=== PATIENT | female | born 1945 | race Caucasian/White ===

== ENCOUNTER → 2020-09-22 | Outpatient (CLI) | payer MEDICARE ==
--- NOTE | 2020-09-22 08:12 | US ---
EXAMINATION TYPE: US liver DATE OF EXAM: 09/22/2020 COMPARISON: NONE CLINICAL HISTORY: R94.5 ABN LIVER FUNCTION TEST. EXAM MEASUREMENTS: Liver Length: 16.6 cm Gallbladder Wall: Surgically absent CBD: 1.2 cm Right Kidney: 9.4 x 4.6 x 4.5 cm Pancreas: Tail obscured by overlying bowel gas, duct visualized measuring 0.4 cm Liver: Heterogeneous, echogenic echotexture. Gallbladder: Surgically absent Evidence for sonographic Mix's sign: No CBD: Mildly Dilated Right Kidney: No hydronephrosis or masses seen Mild dilated pancreatic duct in the head. Visualized liver is heterogeneously hyperechoic. Evaluation for focal masses suboptimal due to the heterogeneity. No surrounding ascites. Mild extrahepatic bili aneta dilatation without significant intrahepatic biliary dilatation. No hydronephrosis in the right ki dney. Some cortical thinning is present. IMPRESSION: Heterogeneous hyperechoic appearance of liver could be on basis of Diffuse fatty infiltration and/or underlying hepatocellular disease. Mild extra hepatic biliary dilat ation without intrahepatic biliary dilatation. Mild pancreatic head ductal dilatation. Advise follow- up with contrast-enhanced CT to further evaluate and characterize.
== END | disposition home or self-care (01) ==
LOC: RADUSWWP 07:08
PROVIDERS: ATTEND Internal Medicine
DX: K83.8 Other specified diseases of biliary tract (principal); K86.89 Other specified diseases of pancreas; R93.2 Abnormal findings on diagnostic imaging of liver and biliary tract
CPT/HCPCS: 76705

== ENCOUNTER → 2020-12-25 | Outpatient (CLI) | payer MEDICARE ==
--- NOTE | 2021-01-02 10:40 | MM ---
Reason for exam: screening (asymptomatic). Last mammogram was performed 1 year and 10 months ago. History: Patient is postmenopausal. Excisional biopsy of both breasts. Physical Findings: A clinical breast exam by your physician is recommended on an annual basis and results should be correlated with mammographic findings. MG 3D Screening Mammo W/Cad Bilateral CC and MLO view(s) were taken. Prior study comparison: March 10, 2019, mammogram, performed at [place]. September 25, 2017, mammogram, performed at [place]. September 23, 2017, mammogram, performed at [place]. March 15, 2014, mammogram, performed at [place]. March 07, 2014, mammogram, performed at [place]. The breast tissue is heterogeneously dense. This may lower the sensitivity of mammography. There are benign appearing round, linear, vascular calcifications bilaterally. Previous mammotome biopsy in the left breast x 2. There is no discrete abnormality. ASSESSMENT: Benign, BI-RAD 2 RECOMMENDATION: Routine screening mammogram of both breasts in 1 year.
== END | disposition home or self-care (01) ==
LOC: RADMAMWWP 09:43
PROVIDERS: ATTEND Internal Medicine
DX: Z12.31 Encounter for screening mammogram for malignant neoplasm of breast (principal); Z78.0 Asymptomatic menopausal state
CPT/HCPCS: 77063; 77067

== ENCOUNTER → 2023-04-25 | Outpatient (CLI) | payer MEDICARE ==
[2023-04-25 16:25] LABS: INR 0.9 (<1.2); Partial Thromboplastin Time 22.8 sec (22.0-30.0); Prothrombin Time 9.5 sec (9.0-12.0)
[2023-04-25 19:51] LABS: Appearance,Urine Clear (Clear); Bilirubin,Urine Negative (Negative); Blood,Urine Negative (Negative); Color,Urine Yellow (Yellow); Ketones,Urine Trace (Negative); Nitrite,Urine Negative (Negative); PH, Urine 7.5; Specific Gravity,Urine 1.018 (1.001-1.030)
[2023-04-25 19:58] LABS: Bacteria,Urine None Seen (None Seen)
[2023-04-25 19:59] LABS: ALT 24 U/L (8-44); AST 25 U/L (13-35); Albumin 4.6 d/dL (3.8-4.9); Albumin/Globulin Ratio 2.09 Ratio (1.60-3.17); Alkaline Phosphatase 44 U/L (41-126); BUN/Creat Ratio 9.64 Ratio (12.00-20.00); Blood Urea Nitrogen 10.6 mg/dL (9.0-27.0); Calcium 9.9 mg/dL (8.7-10.3); Carbon Dioxide 28.1 mmol/L (21.6-31.8); Chloride 105 mmol/L (96-109); Globulin 2.2 d/dL (1.6-3.3); Glucose 92 mg/dL (70-110); Potassium 4.8 mmol/L (3.5-5.5); Sodium 143 mmol/L (135-145); Total Bilirubin 0.4 mg/dL (0.3-1.2); Total Protein 6.8 d/dL (6.2-8.2)
[2023-04-26 02:02] LABS: HCT 42.8 % (37.2-46.3); HGB 13.4 d/dL (12.0-15.0); MCH 28.8 pg (27.0-32.0); MCHC 31.3 d/dL (32.0-37.0); MCV 91.8 FL (80.0-97.0); Mean Platelet Volume 10.9 FL (9.5-12.2); NRBC Per 100 WBC 0 X 10*3/uL (0.00-0.01); Platelet Count 250 X 10*3/uL (140-440); RBC 4.66 X 10*6/uL (4.10-5.20); RDW 14.4 % (11.5-14.5); WBC 6.09 X 10*3/uL (4.50-10.00)
== END | disposition home or self-care (01) ==
LOC: LABPAT 14:49
PROVIDERS: ATTEND Orthopaedic Surgery Sports Medicine
DX: Z01.812 Encounter for preprocedural laboratory examination (principal); M17.12 Unilateral primary osteoarthritis, left knee; R94.31 Abnormal electrocardiogram [ECG] [EKG]
CPT/HCPCS: 36415; 80053; 81001; 85027; 85610; 85730; 87070; 93005

== ENCOUNTER 2023-05-01 07:39 | Day surgery (SDC) | payer MEDICARE ==
[2023-04-23 09:05] VITALS: BMI 31.8
[~2023-05-01 07:39] MED LIST: ACETAMINOPHEN TAB 500 MG TAB PO PRN; DEXAMETHASONE SOD PHOSPHATE 4 MG/ML 1 ML VIAL IV ONE; GABAPENTIN 300 MG CAP PO PRN; HYDROmorphone 0.5 MG/0.5 ML SYRINGE IVP PRN; LIDOCAINE 1% (10MG/ML) FOR IV START INTRADERMA PRN; MELOXICAM 7.5 MG TAB PO PRN; MIDAZOLAM 2 MG/2 ML VIAL IV PRN; ONDANSETRON 4 MG/2 ML VIAL IVP ONE; ONDANSETRON 4 MG/2 ML VIAL IVP PRN; TRANEXAMIC 1,000 MG/100ML-NACL 1,000 MG in SALINE 1 100ML.BAG IVPB PRN
[2023-05-01] MEDS ORDERED: LACTATED RINGERS 1,000 ML IV ONE (08:10)
[2023-05-01 08:42] LABS: Glucose,Whole Blood 140 mg/dL (70-110)
[2023-05-01] MEDS ORDERED: MIDAZOLAM 2 MG/2 ML VIAL IVP ONE (08:45)
[2023-05-01] MEDS ORDERED: traMADol 50 MG TAB PO PRN (09:09)
[2023-05-01] MEDS ORDERED: ACETAMINOPHEN TAB 325 MG TAB PO PRN (09:09)
[2023-05-01] MEDS ORDERED: MAGNESIUM HYDROXIDE 2,400 MG/30 ML CUP PO PRN (09:09)
[2023-05-01] MEDS ORDERED: NA PHOS,M-B/NA PHOS,DI-BA 133 ML ENEMA RECTAL PRN (09:09)
[2023-05-01] MEDS ORDERED: NALOXONE 0.4 MG/ML 1 ML VIAL IV PRN (09:09)
[2023-05-01] MEDS ORDERED: ONDANSETRON 4 MG/2 ML VIAL IVP PRN (09:09)
[2023-05-01] MEDS ORDERED: bisacodyL 10 MG SUPP RECTAL PRN (09:09)
[2023-05-01] MEDS ORDERED: HYDROmorphone 0.5 MG/0.5 ML SYRINGE IVP PRN ×3 (09:09)
[2023-05-01] MEDS ORDERED: PROPOFOL 10 MG/ML 20 ML VIAL IV ONE (09:37)
[2023-05-01] MEDS ORDERED: PHENYLEPHRINE-0.9% NACL SYG 1,000 MCG/10 ML SYRINGE ONE (09:37)
[2023-05-01] MEDS ORDERED: fentaNYL (PF) 50 MCG/ML 2 ML AMP ONE (09:37)
[2023-05-01] MEDS ORDERED: TRANEXAMIC 1,000 MG/100ML-NACL PREMIX BAG ONE (09:37)
[2023-05-01] MEDS ORDERED: ROPIVACAINE 5 MG/ML 30 ML VIAL ONE (09:37)
[2023-05-01] MEDS ORDERED: DEXAMETHASONE SOD PHOSPHATE 4 MG/ML 1 ML VIAL ONE (09:37)
[2023-05-01] MEDS ORDERED: ePHEDrine 50 MG/ML 1 ML VIAL ONE (09:37)
[2023-05-01] MEDS ORDERED: MIDAZOLAM 2 MG/2 ML VIAL ONE (09:37)
[2023-05-01] MEDS ORDERED: ceFAZolin 3,000 MG in SODIUM CHLORIDE 0.9% IRRIGATIO 3,000 ML IRRIGATION ONE (10:11)
[2023-05-01] MEDS ORDERED: ROPIVACAINE 1,100 MG, SODIUM CHLORIDE 0.9% 500 ML 330 ML, EMPTY PAIN BALL 1 EACH MISCELLANE PRN ×2 (11:47)
--- NOTE | 2023-05-01 12:44 | XR ---
EXAMINATION TYPE: XR knee limited RT DATE OF EXAM: 05/01/2023 CLINICAL HISTORY: Postoperative evaluation Two views of the right knee are submitted. Identified are changes of total knee arthroplasty with femoral and tibial components appearing well seated. Postsurgical soft tissue changes are noted. Alignment is anatomic.
--- NOTE | 2023-05-01 13:02 | OP ---
OPERATIVE REPORT DATE OF SERVICE : 05/01/2023 MAT ROLLER: Adair Millard PA-C. PREOPERATIVE DIAGNOSIS: Right knee osteoarthrosis. POSTOPERATIVE DIAGNOSIS: Right knee osteoarthrosis. PROCEDURE PERFORMED: Right total knee arthroplasty. ANESTHESIA: Spinal with sedation. ESTIMATED BLOOD LOSS: 100 mL. TOURNIQUET TIME: 49 minutes at 250 mmHg. COMPLICATIONS: None apparent. DRAINS: None. DISPOSITION: Postanesthesia care unit. INDICATIONS: Blanca is a very pleasant 78-year-old female with longstanding history of right knee pain. History and physical examination are consistent with advanced right knee osteoarthrosis. She has been through significant nonoperative management up to this point. Further treatment options were discussed, and she decided to go forward with right total knee arthroplasty. The risks of procedure were discussed in detail. These risks included, but were not limited to, risk of infection, nerve damage, bleeding, pain, and a small risk of deep vein thrombosis which could lead to fatal pulmonary embolism. There is also risk of loosening of the implant which could require revision operation. The patient understands these risks. All of her questions were answered to her satisfaction. Appropriate informed consent was obtained. DESCRIPTION OF PROCEDURE: The patient was identified in the preoperative holding area. The surgical site was marked by both the patient and myself. She was given 2 g of Ancef IV prophylactic purposes. She was then transported to the operative suite. She was placed supine on the operating room table. Spinal anesthetic was then administered and dosed per the Anesthesia Department without apparent complication. Examination under anesthesia was then performed. The patient was 2 to 3 degrees shy of full extension. She had 100 degrees of flexion of the medial collateral ligament, lateral collateral ligament, posterior cruciate ligaments were stable. Tourniquet was then placed high on the right upper thigh, well-padded in preparation for surgery. The patient's right lower extremity was then prepped and draped in usual sterile fashion. Standard surgical pause was then undertaken to ensure that we were operating the correct site and that appropriate preoperative antibiotics had been given. All staff in the room were in agreement and we proceeded. The outlines of the patella were marked with a surgical pen. A planned 12 cm vertical incision centered over the patella was marked with a surgical pen. The leg was then exsanguinated with an Esmarch dressing. The knee was then flexed, and the tourniquet was inflated to 250 mmHg. The total tourniquet time for the procedure was 49 minutes. Incision was then made with a 10-blade scalpel. Dissection was carried down sharply to overlying fascia. Great care was taken to minimize the skin flaps. The knee was then exposed using a standard medial parapatellar approach. A small cuff of quadriceps tendon was then left for suturing. She was in a bit of varus preoperatively. A standard medial release was then made. Superficial medial collateral ligament dissected off the bone around to the posterior aspect of the proximal tibia. Medial meniscus was then excised as well. The lateral meniscus was also released anteriorly. The leg was then externally rotated. The patella was everted. The knee was flexed. The retractors were then placed to protect the collateral ligaments. I then proceeded to remove the infrapatellar fat pad. This excised sharply tangentially with fibers of the patellar tendon. I then proceeded to remove the peripheral osteophytes. This was done with a rongeur. I then proceeded with the distal femoral resection. She did have near full extension. A planned 9-mm resection was then done. The femoral canal was in the midline of the femur, approximately 10 mm anterior to the origin of the posterior cruciate ligament. The portillo was then advanced down the center of the femur and placed intramedullary. Based on the preoperative radiographs, the angle between the anatomic and mechanical axis of the femur was approximately 4 to 5 degrees. The valgus angle of the distal femoral cutting guide was then set at 4 degrees for the right knee. The distal cutting guide was then advanced over the intramedullary portillo. This was seated firmly against the femur. Then, as mentioned, planned to take 9 mm off the distal femur. The cutting block was then secured onto the femur with pins. Jig was then removed. Distal femoral cut was made through the slot of the block. The pins were then removed, the distal femoral cutting block was removed. The accuracy of the distal cuts was checked with 2 flat bars. I then proceeded with femoral sizing. Posterior referencing sizing guide was held firmly against the resected distal surface of the femur. The posterior condyles were resting on the posterior plane of the guide. The sizing guide was then placed on the anterior femur. The size was measured as a size 7. I then assessed for femoral rotation. Plan was for 3 degrees external rotation. Three degrees of external rotation was placed onto the jig. These holes were then marked and then confirmed the rotation by 3 separate methods. This was done using epicondylar axis as well as Whitesides line and posterior referencing. It was deemed that the external rotation was proper. I then went forward and placed the femoral cutting block. This was placed over the previously placed pin holes. The Julián wing was then placed on the anterior slots to ensure that we would not notch the anterior femur with the anterior femoral cut. I then proceeded with the anterior femoral cut. This was flushed with the anterior cortex of the femur. The posterior cuts were then made followed by the anterior chamfer cut and the posterior chamfer cut. The cutting block was then removed. Throughout the resection, the collateral ligaments were protected with retractors. I then placed a trial size 7 femur. It was slightly wide but the narrow fit very nicely, and it fit flush with the distal end of the femur. The drill holes were then made. I then proceeded with the tibial cut. I planned for cruciate-retaining knee. The guide was placed and set for varus valgus and for slope. Height set for approximately 2 mm resection from the medial tibial plateau which was the lower side. I was happy with the alignment and the amount of resection. The cutting block was then pinned to the proximal tibia. The alignment portillo was removed and the proximal tibia was resected with a reciprocating saw. Again, this was done with retractors protecting the collateral ligaments as well as the posterior cruciate ligament. I then proceeded to evaluate the flexion extension gaps. A 10 mm block was then placed. The flexion extension gaps were equal. I then proceeded with resection of the posterior osteophytes. She had fairly minimal posterior osteophytes. This was done using curved osteotome. This resected the posterior osteophytes, and posterior capsular stripping was done off the posterior aspect of the femur at this time. The osteophytes were then removed. I then proceeded with resection of the patella. The thickness of patella was measured using the caliper. The thickness was 24 mm. Thickness of the anticipated patellar dome was taken into account. Resection was then performed and confirmed to be equal in 4 quadrants using a caliper. Approximately 14 mm of bone remained after resection. A 29 x 8 mm standard patellar trial was then placed. The holes were drilled and the trial was then placed. I then proceeded with sizing tibial plate. A size C tibial plate fit very nicely. I then placed a trial femur, tibial tray, and patellar button. A 10 mm trial tibial insert was also placed. The components fit very nicely. She had full extension and flexion. The extension and flexion gaps were equal and stable to both varus and valgus stress. The patella tracked appropriately. The tibial tray rotation was then marked with a Bovie. This was externally rotated properly. I then proceeded with tibial preparation. I first drilled the femoral holes and removed the femoral component. Tibial tray was then set for proper external rotation as well as medial lateral placement on the tibia. It was then pinned in place. I then proceeded with punching the keel. I then decided to proceed with cementing of all our components. The knee was thoroughly irrigated with sterile saline solution via pulse lavage. The lateral geniculate artery was identified and cauterized. All blood was removed from the bone of the tibia, femur and patella pulsed lavage. I then proceeded with cementing. Two packs of antibiotic bone cement prepared on the back table by surgical orderly. I then proceeded with cementing the tibia first. Cement was impacted in the keel as well as deeply seated into the bone. A second coat of cement was then placed. The tibia was then impacted into place. Excess cement was removed with German's and Joker's. I then proceeded with cementing of the femoral component. The femoral component was also cemented using standard technique. Excess cement was removed. A 10-mm trial insert was then placed in the knee. It was brought into full extension with a constant axial load placed until the cement had hardened. The patellar component was then cemented. This held firmly compressive device until the cement had dried. When the cement dried, the knee was taken out of extension. All excess cement was removed from around the prosthesis. I then trialed the knee with a 10 mm insert. Flexion extension gaps were appropriate. The knee was stable. It came into full extension. I decided to go forward with 10 mm medial congruent cross-linked cruciate- retaining tibial insert. Polyethylene was then placed on the tibial tray and locked in place. The knee was then reduced. The knee was again further irrigated with sterile saline solution with antibiotic added. The tourniquet was then deflated. Total tourniquet time for the procedure was 49 minutes at 250 mmHg. Final components were Mayco Persona size 7 narrow cruciate-retaining femoral component, size C tibial tray, a 10 mm medial congruent cruciate-retaining polyethylene insert, a 29 x 8 mm patella. I then proceeded with closure. Again, the knee was thoroughly irrigated. The quadriceps tendon and the medial retinaculum were reapproximated with #2 Ethibond suture. The extensor mechanism was then closed with a running #2 Quill suture. Subcutaneous tissues were closed with 2-0 Vicryl interrupted suture. The skin was closed with a running 3-0 Quill suture. Dermabond was applied to the incision. Sterile compressive dressing was then applied. All sponge and needle counts were deemed correct prior to closure. The patient tolerated the procedure without apparent complication. She was transferred to recovery room in stable condition. MMODL / IJN: [id number] /
[2023-05-01] MEDS: LACTATED RINGERS 1,000 ML IV SCH ×3 (13:44→22:10)
[2023-05-01] MEDS: HYDROcodone/APAP 7.5-325MG 1 EACH TAB PO PRN ×2 (16:37→20:05)
[2023-05-01] MEDS ORDERED: ALBUTEROL NEBULIZED 2.5 MG/3 ML INHALATION PRN (17:24)
[2023-05-01] MEDS ORDERED: SYMBICORT 80-4.5 MCG INHALER INHALATION PRN (17:24)
[2023-05-01] MEDS: PANTOPRAZOLE 40 MG TABLET PO SCH (18:23)
--- NOTE | 2023-05-01 19:48 | P.ANPRN ---
Procedure Note - Anesthesia - Nerve Block Performed Right Adductor Canal Infusion Time Out Performed: Yes Date of Procedure: 05/01/23 Procedure Start Time: :44 Procedure Stop Time: :52 Location of Patient: PreOp Indication: Acute Post-Operative Pain, Requested by Surgeon Sedation Type: Sedate with meaningful contact maintained Preparation: Sterile Prep, Sterile Dressing Position: Supine Catheter: Indwelling Needle Types: Pajunk Needle Gauge: 21 Ultrasound used to visualize needle placement: Yes Ultrasound used to observe medication spread: Yes Blood Aspirated: No Pain Paresthesia on Injection Noted: No Resistance on Injection: Normal Image Stored and Saved: Yes Events: Uneventful and Well Tolerated (Ropivacaine 0.5% 20 mL plus dexamethasone 4 mg)
--- NOTE | 2023-05-01 19:49 | P.ANPRN ---
Procedure Note - Anesthesia - Nerve Block Performed Right Radhack Single Time Out Performed: Yes Date of Procedure: 05/01/23 Procedure Start Time: 08:53 Procedure Stop Time: 08:56 Location of Patient: PreOp Indication: Acute Post-Operative Pain, Requested by Surgeon Sedation Type: Sedate with meaningful contact maintained Preparation: Sterile Prep Position: Supine Needle Types: Pajunk Needle Gauge: 21 Ultrasound used to visualize needle placement: Yes Ultrasound used to observe medication spread: Yes Blood Aspirated: No Pain Paresthesia on Injection Noted: No Resistance on Injection: Normal Image Stored and Saved: Yes Events: Uneventful and Well Tolerated (Ropivacaine 0.5% 20 mL plus dexamethasone 4 mg)
[2023-05-01] MEDS: ASPIRIN 81 MG PO SCH (20:05)
[2023-05-01] MEDS ORDERED: DULoxetine HCL 60 MG CAPSULE.DR PO SCH (21:00)
[2023-05-01] MEDS ORDERED: MAGNESIUM OXIDE 400 MG TAB PO SCH (21:00)
[2023-05-01] MEDS ORDERED: SENNOSIDES-DOCUSATE SODIUM 1 EACH TAB PO SCH (21:00)
[2023-05-01] MEDS ORDERED: ALPRAZolam 0.5 MG TAB PO SCH (21:00)
[2023-05-02] MEDS: HYDROcodone/APAP 7.5-325MG 1 EACH TAB PO PRN ×2 (01:05→10:44)
[2023-05-02] MEDS: PANTOPRAZOLE 40 MG TABLET PO SCH (06:27)
[2023-05-02] MEDS: LACTATED RINGERS 1,000 ML IV SCH ×3 (06:27→11:15)
[2023-05-02] MEDS: ASPIRIN 81 MG PO SCH (08:48)
[2023-05-02] MEDS ORDERED: LORATADINE 10 MG TAB PO SCH (09:00)
[2023-05-02 11:07] LABS: Basophils # (A) 0.01 X 10*3/uL (0.00-0.10); Basophils % (A) 0.1 %; Eosinophils # (A) 0.01 X 10*3/uL (0.04-0.35); Eosinophils % (A) 0.1 %; HCT 36.4 % (37.2-46.3); HGB 11.5 d/dL (12.0-15.0); Lymphocytes # (A) 1.04 X 10*3/uL (0.90-5.00); Lymphocytes % (A) 9.7 %; MCH 29.1 pg (27.0-32.0); MCHC 31.6 d/dL (32.0-37.0); MCV 92.2 FL (80.0-97.0); Mean Platelet Volume 10.3 FL (9.5-12.2); Monocytes # (A) 1.02 X 10*3/uL (0.20-1.00); Monocytes % (A) 9.5 %; NRBC Per 100 WBC 0 X 10*3/uL (0.00-0.01); Neutrophils # (A) 8.65 X 10*3/uL (1.80-7.70); Neutrophils % (A) 80.3 %; Platelet Count 247 X 10*3/uL (140-440); RBC 3.95 X 10*6/uL (4.10-5.20); RDW 14.7 % (11.5-14.5); WBC 10.76 X 10*3/uL (4.50-10.00)
[2023-05-02] MEDS ORDERED: MULTIVITAMINS, THERA 1 EACH TAB PO SCH (12:00)
[2023-05-02 12:23] LABS: Appearance,Urine Clear (Clear); Bilirubin,Urine Negative (Negative); Blood,Urine Negative (Negative); Color,Urine Yellow; Glucose,Urine (UA) Negative (Negative); Ketones,Urine Negative (Negative); Leukocyte Esterase,Urine Negative (Negative); Nitrite,Urine Negative (Negative); PH, Urine 5.5 (5.0-8.0); Protein,Urine Negative (Negative); Specific Gravity,Urine 1.024 (1.001-1.035); Urobilinogen,Urine <2.0 mg/dL (<2.0)
--- NOTE | 2023-05-02 12:53 | P.CONS ---
History of Present Illness - Reason for Consult Consult date: 05/02/23 - History of Present Illness This is a 78 year old female with medical history of asthma, GERD/Reflux, hypertension, sleep apnea, neuropathy. Patient is admitted for elective right total knee arthroplasty for osteoarthritis. Patient is evaluated today on the medical floor. Blood pressure is low 100s to 90s systolic and will recommend to hold losartan patients home medication. Otherwise postoperatively patient is doing well. No chest pain, no shortness of breath. Patient reports pain about 4 out of 10 and she states pain is controlled with current regimen. Patient was on bactrim outpatient perioperatively reports had an abnormal urine has no dysuria urgency or frequency, urinalysis will be repeated prior to discharge. Patient on medical floor and has been evaluated by PT can DC home with homecare and medically patient is stable for DC home. REVIEW OF SYSTEMS: CONSTITUTIONAL: No fever, no malaise, no fatigue. HEENT: No recent visual problems or hearing problems. Denied any sore throat. CARDIOVASCULAR: No chest pain, orthopnea, PND, no palpitations, no syncope. PULMONARY: No shortness of breath, no cough, no hemoptysis. GASTROINTESTINAL: No diarrhea, no nausea, no vomiting, no abdominal pain. NEUROLOGICAL: No headaches, no weakness, no numbness. HEMATOLOGICAL: Denies any bleeding or petechiae. GENITOURINARY: Denies any burning micturition, frequency, or urgency. MUSCULOSKELETAL/RHEUMATOLOGICAL: Denies any joint pain, swelling, or any muscle pain. ENDOCRINE: Denies any polyuria or polydipsia. The rest of the 14-point review of systems is negative. PHYSICAL EXAMINATION: GENERAL: The patient is alert and oriented x3, not in any acute distress. Well developed, well nourished. HEENT: Pupils are round and equally reacting to light. EOMI. No scleral icterus. No conjunctival pallor. Normocephalic, atraumatic. No pharyngeal erythema. No thyromegaly. CARDIOVASCULAR: S1 and S2 present. No murmurs, rubs, or gallops. PULMONARY: Chest is clear to auscultation, no wheezing or crackles. ABDOMEN: Soft, nontender, nondistended, normoactive bowel sounds. No palpable organomegaly. MUSCULOSKELETAL: No joint swelling or deformity. Post surgical right knee no swelling. Has dressing inplace. EXTREMITIES: No cyanosis, clubbing, or pedal edema. NEUROLOGICAL: Gross neurological examination did not reveal any focal deficits. SKIN: No rashes. Assessment Right knee total arthroplasty due to severe osteoarthritis Hx hypertension low/normal postoperative and recommend to hold losartan on discharge and monitor BP outpatient can resume when BP is above 130s systolic. Abnormal urinalysis outpatient will repeat prior to discharge Hx asthma with no acute exacerbation patient is on room and needs encouragement to use the IS 10 x an hr while awake Hx of sleep apnea Hx GERD Obesity GI prophylaxis DVT prophylaxis as per primary Full Code Plan Patient to continue same home medications with the exception of losartan recommending to hold and f/u BP outpatient can resume if BP above 130s systolic Continue with incentive spirometer 10 x an hour while awake Home with homecare on discharge as recommended by PT. Repeat urinalysis prior to DC patient may not require further antibiotics. Medically patient can dc home if cleared by primary service with mentioned recommendations. Thank you kindly for this consultation. The impression and plan of care has been dictated by Lavonne López, Nurse Practitioner as directed. Dr. Becky MD I have performed a history and physical examination and medical decision making of this patient, discussed the same with the dictator, and agree with the dictators assessment and plan as written, documented as a scribe. Based on total visit time, I have performed more than 50% of this visit. Past Medical History Past Medical History: Asthma, GERD/Reflux, Hypertension, Sleep Apnea/CPAP/BIPAP Additional Past Medical History / Comment(s): Neuropathy, Borderline Diabetes, seasonal allergies. Hx. of acute thyroiditis- 15 years ago. History of Any Multi-Drug Resistant Organisms: None Reported Past Surgical History: Cholecystectomy, Orthopedic Surgery Additional Past Surgical History / Comment(s): Colonoscopy, R foot surgery in November of 2022 for a bone spur, right knee replacement 05/01/23 Past Anesthesia/Blood Transfusion Reactions: No Reported Reaction Past Psychological History: No Psychological Hx Reported Smoking Status: Never smoker Past Alcohol Use History: Rare Past Drug Use History: None Reported - Past Family History Mother Family Medical History: CVA/TIA Medications and Allergies Home Medications Medication Instructions Recorded Confirmed Type Albuterol Inhaler [Ventolin Hfa 1 puff INHALATION TID PRN 04/23/23 05/01/23 History Inhaler] Budesonide/Formoterol Fumarate 1 puff INHALATION DAILY PRN 04/23/23 05/01/23 History [Symbicort 80-4.5 Mcg Inhaler] Loratadine [Claritin] 10 mg PO DAILY 04/23/23 05/01/23 History Magnesium 200 mg PO HS 04/23/23 05/01/23 History Omeprazole [PriLOSEC] 20 mg PO HS 04/23/23 05/01/23 History ALPRAZolam [Xanax] 0.5 mg PO HS 04/28/23 05/01/23 History DULoxetine HCL [Cymbalta] 60 mg PO HS 04/28/23 05/01/23 History Losartan [Cozaar] 25 mg PO HS 04/28/23 05/01/23 History Sulfamethoxazole/Trimethoprim See Rx Instructions .ROUTE .COMPLEX 05/01/23 05/01/23 History [Sulfamethoxazole-Tmp Ds Tablet] Allergies Allergy/AdvReac Type Severity Reaction Status Date / Time meperidine [From Demerol] Allergy Anaphylaxis Verified 05/01/23 08:11 Physical Exam Vitals: Vital Signs Temp Pulse Pulse Resp BP Pulse Ox FiO2 05/02/23 07:00 97.9 F 80 18 97/62 92 L 05/02/23 01:17 98.1 F 92 18 113/69 90 L 05/01/23 20:02 98.2 F 87 18 124/72 90 L 05/01/23 14:16 97.6 F 84 18 137/78 96 05/01/23 13:30 77 17 149/74 65 L 05/01/23 13:15 78 15 98 05/01/23 13:00 79 05/01/23 12:45 81 16 138/69 100 05/01/23 12:34 72 19 126/67 99 05/01/23 12:15 80 16 100 05/01/23 12:00 77 15 140/62 100 3 05/01/23 11:45 78 17 140/62 97 05/01/23 11:37 98.0 F 15 108/60 100 Intake and Output 05/01/23 05/02/23 05/02/23 22:59 06:59 14:59 Intake Total 450 1490 Balance 450 1490 Intake: Intake, IV Titration 450 1250 Amount Lactated Ringers 1,000 ml 400 1200 @ 100 mls/hr IV .Q10H [facility] Rx#:[id number] ceFAZolin 2 gm In Sodium 50 50 Chloride 0.9% 50 ml @ 100 mls/hr IVPB Q8H [facility] Rx#: [id number] Oral 240 Other: # Voids 1 2 Results CBC & Chem 7: 05/02/23 08:11 Assessment and Plan Time with Patient: Less than 30
[2023-05-02 13:28] VITALS: BP 136/62; PULSE 75; RESP 16; TEMP 98.5
--- NOTE | 2023-05-02 13:42 | P.DS ---
Providers Expected date of discharge: 05/02/23 Attending physician: Den Mix Consults: 05/01/23 14:04 Consult Physician Routine Consulting Provider: Ceasar Bobo Consult Reason/Comments: medical Do you want consulting provider notified?: Yes Primary care physician: Eliseo Moore - Discharge Diagnosis(es) (1) Osteoarthritis of right knee Patient was admitted to the OR on 05/01/23 to undergo a right total knee arthroplasty. She had failed conservative measures as an outpatient and desired to proceed with elective surgery after given informed consent. SHe underwent the above procedure which he tolerated well without complication. Postoperative hospital course has remained without complication. On day of discharge she is afebrile, vital signs stable, labs within acceptable ranges, tolerating by mouth meds and diet, voiding without difficulty, positive flatus, denies abdominal pain or calf pain, pain is controlled on oral pain medication and has no new complaints. Wound is benign, neurovascular status is intact, calf is soft and nontender, abdomen soft and nontender. Review of systems is negative for numbness, tingling, fever, chills, chest pain, shortness of breath, nausea, vom iting, dizziness, headaches, slurred speech or other. Current Visit: Yes Status: Acute Priority: Medium Procedures: Right TKA Patient Condition at Discharge: Good Plan - Discharge Summary Discharge Rx Participant: Yes New Discharge Prescriptions: New Aspirin [Adult Low Dose Aspirin EC] 81 mg PO BID #60 tab Docusate [Colace] 100 mg PO BID #60 capsule HYDROcodone/APAP 7.5-325MG [[place] 7.5-325] 1 - 2 each PO Q6HR PRN #42 tab PRN Reason: Pain Multivitamins, Thera [Multivitamin (formulary)] 1 each PO DAILY@1200 #30 tab Continue Albuterol Inhaler [Ventolin Hfa Inhaler] 1 puff INHALATION TID PRN PRN Reason: Wheezing Magnesium 200 mg PO HS ALPRAZolam [Xanax] 0.5 mg PO HS Loratadine [Claritin] 10 mg PO DAILY Omeprazole [PriLOSEC] 20 mg PO HS Budesonide/Formoterol Fumarate [Symbicort 80-4.5 Mcg Inhaler] 1 puff INHALATION DAILY PRN PRN Reason: Wheezing DULoxetine HCL [Cymbalta] 60 mg PO HS Discontinued Losartan [Cozaar] 25 mg PO HS No Action Sulfamethoxazole/Trimethoprim [Sulfamethoxazole-Tmp Ds Tablet] See Rx Instructions .ROUTE .COMPLEX Discharge Medication List Albuterol Inhaler [Ventolin Hfa Inhaler] 1 puff INHALATION TID PRN 04/23/23 [History] Budesonide/Formoterol Fumarate [Symbicort 80-4.5 Mcg Inhaler] 1 puff INHALATION DAILY PRN 04/23/23 [History] Loratadine [Claritin] 10 mg PO DAILY 04/23/23 [History] Magnesium 200 mg PO HS 04/23/23 [History] Omeprazole [PriLOSEC] 20 mg PO HS 04/23/23 [History] ALPRAZolam [Xanax] 0.5 mg PO HS 04/28/23 [History] DULoxetine HCL [Cymbalta] 60 mg PO HS 04/28/23 [History] Sulfamethoxazole/Trimethoprim [Sulfamethoxazole-Tmp Ds Tablet] See Rx Instructions .ROUTE .COMPLEX 05/01/23 [History] Aspirin [Adult Low Dose Aspirin EC] 81 mg PO BID #60 tab 05/02/23 [Rx] Docusate [Colace] 100 mg PO BID #60 capsule 05/02/23 [Rx] HYDROcodone/APAP 7.5-325MG [[place] 7.5-325] 1 - 2 each PO Q6HR PRN #42 tab 05/02/23 [Rx] Multivitamins, Thera [Multivitamin (formulary)] 1 each PO DAILY@1200 #30 tab 05/02/23 [Rx] Follow up Appointment(s)/Referral(s): Eliseo Moore MD [Primary Care Provider] - 1 Week [facility] [NON-STAFF] - 1-2 Days Den Mix MD [STAFF PHYSICIAN] - 10 Days Activity/Diet/Wound Care/Special Instructions: Hold losartan on discharge and monitor BP can resume when blood pressure above 130s systolic WBAT may shower in 3 days if no bleeding take meds as directed F/U in office Discharge Disposition: HOME WITH HOME HEALTH SERVICES
--- NOTE | 2023-05-02 15:01 | P.PN ---
Progress Note - Text The patient is status post right adductor canal catheter placement. The catheter was placed for postoperative pain control, status post total right knee arthroplasty. Ropivacaine 0.2% is infusing at 8 mLs per hour. The patient has no complaints of right lower extremity numbness or weakness. Patient's VAS score is 0 -10. Assessment: Patient's adductor canal catheter is in place and working appropriately. Plan: continue infusion and adjust it as needed.
[2023-05-02] MEDS ORDERED: LOSARTAN 25 MG TAB PO SCH (21:00)
== END 2023-05-02 15:09 | disposition home health service (06) ==
LOC: OR 07:39 → 4SSUR 11:37 → OR 05-02 15:09
PROVIDERS: ATTEND Orthopaedic Surgery Sports Medicine
DX: M17.11 Unilateral primary osteoarthritis, right knee (principal); J45.909 Unspecified asthma, uncomplicated; K21.9 Gastro-esophageal reflux disease without esophagitis; I10 Essential (primary) hypertension; G47.33 Obstructive sleep apnea (adult) (pediatric); N28.9 Disorder of kidney and ureter, unspecified; G62.9 Polyneuropathy, unspecified; E66.9 Obesity, unspecified; Z68.32 Body mass index [BMI] 32.0-32.9, adult; Z86.39 Personal history of other endocrine, nutritional and metabolic disease; Z90.49 Acquired absence of other specified parts of digestive tract; Z98.890 Other specified postprocedural states; Z82.3 Family history of stroke; Z79.51 Long term (current) use of inhaled steroids; Z79.1 Long term (current) use of non-steroidal anti-inflammatories (NSAID); Z79.899 Other long term (current) drug therapy; Z88.5 Allergy status to narcotic agent; Z79.82 Long term (current) use of aspirin
CPT/HCPCS: 97161; 85025; 81003; 73560; 27447; J2250; J1100; J0690 ×3; J2405; J3010; J2795; J2704; J1170; J2371; 64448; 64999

== ENCOUNTER → 2025-01-06 | Outpatient (CLI) | payer MEDICARE ==
[2025-01-06 20:00] LABS: Carbon Dioxide 25.9 mmol/L (21.6-31.8); Chloride 102 mmol/L (96-109); Potassium 4.6 mmol/L (3.5-5.5); Sodium 142 mmol/L (135-145)
[2025-01-06 20:32] LABS: HCT 45.3 % (37.2-46.3); HGB 13.9 g/dL (12.0-15.0); MCH 28.3 pg (27.0-32.0); MCHC 30.7 g/dL (32.0-37.0); MCV 92.1 FL (80.0-97.0); Mean Platelet Volume 10.6 FL (9.5-12.2); NRBC Per 100 WBC 0 X 10*3/uL (0.00-0.01); Platelet Count 281 X 10*3/uL (140-440); RBC 4.92 X 10*6/uL (4.10-5.20); RDW 14.2 % (11.5-14.5); WBC 6.11 X 10*3/uL (4.50-10.00)
== END | disposition home or self-care (01) ==
LOC: LABPAT 13:50
PROVIDERS: ATTEND Internal Medicine Interventional Cardiology
DX: Z01.812 Encounter for preprocedural laboratory examination (principal); R07.9 Chest pain, unspecified; R06.02 Shortness of breath
CPT/HCPCS: 80051; 82565; 84520; 85027

== ENCOUNTER 2025-01-11 09:26 | Day surgery (SDC) | payer MEDICARE ==
[2025-01-07 16:10] VITALS: BMI 32.9
[~2025-01-11 09:26] MED LIST changes: -ACETAMINOPHEN TAB 500 MG TAB PO PRN; +ALPRAZolam 0.25 MG TAB PO PRN; -DEXAMETHASONE SOD PHOSPHATE 4 MG/ML 1 ML VIAL IV ONE; -GABAPENTIN 300 MG CAP PO PRN; +HEPARIN SODIUM,PORCINE (1 ML) 2,500 UNIT in SODIUM CHLORIDE 0.9% 250 ML IRRIGATION PRN; +HEPARIN SODIUM,PORCINE 10,000 UNIT in SODIUM CHLORIDE 0.9% 1,000 ML IRRIGATION PRN; -HYDROmorphone 0.5 MG/0.5 ML SYRINGE IVP PRN; -LIDOCAINE 1% (10MG/ML) FOR IV START INTRADERMA PRN; -MELOXICAM 7.5 MG TAB PO PRN; -MIDAZOLAM 2 MG/2 ML VIAL IV PRN; +NITROGLYCERIN SL TABS 0.4 MG TAB SUBLINGUAL PRN; -ONDANSETRON 4 MG/2 ML VIAL IVP ONE; -ONDANSETRON 4 MG/2 ML VIAL IVP PRN; -TRANEXAMIC 1,000 MG/100ML-NACL 1,000 MG in SALINE 1 100ML.BAG IVPB PRN
[2025-01-11] MEDS: IV FLUID CONTINUATION 1,000 ML IV ONE (09:35)
[2025-01-11 10:00] LABS: Glucose,Whole Blood 103 mg/dL (70-110)
[2025-01-11] MEDS: SODIUM CHLORIDE 0.9% 1,000 ML in EMPTY BAG 1 BAG IV SCH (10:07)
[2025-01-11] MEDS: ALPRAZolam 0.5 MG TAB PO PRN (10:07)
[2025-01-11] MEDS: ASPIRIN 325 MG TAB PO ONE (10:08)
[2025-01-11 10:15] VITALS: RESP 16; TEMP 97.9
[2025-01-11] MEDS: HEPARIN SODIUM (1,000 UNIT/ML) 1,000 UNIT in SODIUM CHLORIDE 0.9% 1,000 ML IRRIGATION ONE (12:02)
[2025-01-11] MEDS: HEPARIN SODIUM,PORCINE (1 ML) 2,500 UNIT in SODIUM CHLORIDE 0.9% 250 ML IRRIGATION ONE (12:02)
[2025-01-11] MEDS: fentaNYL (PF) 50 MCG/ML 2 ML AMP IVP ONE (12:02)
[2025-01-11] MEDS: LIDOCAINE 1% INJ 10MG/ML (20 ML MDV) SQ ONE (12:04)
[2025-01-11] MEDS: VERAPAMIL SYRINGE (5 MG/10 ML) INTRAARTER ONE (12:05)
[2025-01-11] MEDS: HEPARIN SODIUM 1,000 UN/ML (10ML VL) IVP ONE (12:11)
[2025-01-11] MEDS: IOPAMIDOL-370 100ML BTL INJ ONE (12:20)
[2025-01-11] MEDS ORDERED: RX INFO: IV CONTRAST WAS GIVEN 1 EACH MISC MISCELLANE PRN (12:33)
[2025-01-11] MEDS: SODIUM CHLORIDE 0.9% 1,000 ML IV SCH (12:39)
--- NOTE | 2025-01-11 12:39 | P.CARDCATH ---
Date of Procedure: 01/11/25 Description of Procedure: Cardiac Catheterization: The patient is a 79-year-old female with known history of hypertension and diabetes who has been complaining of progressive dyspnea on exertion and fatigue and episodes of chest discomfort. She had an MPI that showed evidence of cardiomyopathy but no inducible ischemia. Recommendations were made regarding cardiac catheterization, the risks and the complications were discussed with the patient who is in full understanding and agreement. Procedure Description: Patient was brought to microbiology lab assistant in fasting semi-sedated state after receiving Fentanyl and Benadryl achieiving moderate conscious sedated state. Using Xylocaine Anesthesia and modified Seldinger technique, a 6-Mongolian sheath was introduced in the right ulnar artery . Subsequently, selective coronary angiography was performed using a 5-Mongolian 3.5 bend Kaz catheter. Multiple views of the coronary artery including hemiaxial views were obtained. The 5 Mongolian pigtail catheter was used to cross the aortic valve and LVEDP was calculated. A 30 degree TAYLOR view of the left ventricle was obtained. Following that, catheter and sheath were removed. Hemostasis was obtained with deployment of vascular band . There was no immediate complication. Patient was returned to room in stable condition. Of note, the patient received a total of 4500 units of intravenous heparin as well as intra-arterial verapamil. Findings: Left main: This is a large size vessel, bifurcating into LAD and left circumflex, left main has no obstructive disease LAD: This is a large size vessel, giving rise to a proximal diagonal branch. The LAD reaches to the apex with a wraparound apex segment. In the proximal segment there is 10 to 20% plaque with no high-grade stenosis. Left circumflex: This is a nondominant vessel giving rise to a very proximal obtuse marginal branch that is large in caliber the second obtuse marginal branch is moderate in caliber. The left circumflex and its branches have no obstructive disease RCA: This is a dominant vessel bifurcating distally to the PDA and the PLV that is small in caliber. The RCA in the midsegment has 20% to 30% plaque but no high-grade stenosis Left Ventriculogram: Performed in the 30 degree TAYLOR view and revealed global hypokinesis with an ejection fraction of 30 to 35% and no significant mitral regurgitation Hemodynamics: There was no gradient across the aortic valve, LVEDP was 10-16 mmHg Conclusion: 1. 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 Right dominance 3. Severe global hypokinesis of the left ventricle Recommendations: The patient has evidence of nonischemic cardiomyopathy. I would recommend to optimize her treatment and reevaluate her ejection fraction by echocardiography, if there is no improvement she will be a candidate for biventricular pacemaker with ICD placement. The findings and the recommendations were discussed with the patient and the family and they were in full understanding and agreement. Duration of sedation is 19 minutes.
[2025-01-11 15:01] VITALS: PULSE 58
[2025-01-11 15:51] VITALS: BP 128/58
[2025-01-12] MEDS ORDERED: PANTOPRAZOLE 40 MG TABLET PO SCH (07:30)
[2025-01-12] MEDS ORDERED: LOSARTAN 25 MG TAB PO SCH (09:00)
[2025-01-12] MEDS ORDERED: DAPAGLIFLOZIN PROPANEDIOL 5 MG TABLET PO SCH (09:00)
[2025-01-12] MEDS ORDERED: METOPROLOL SUCCINATE (ER) 25 MG TAB.ER.24H PO SCH (09:00)
[2025-01-12] MEDS ORDERED: ASPIRIN 81 MG PO SCH (09:00)
== END 2025-01-11 15:36 | disposition home or self-care (01) ==
LOC: CATHCVL 09:26
PROVIDERS: ATTEND Internal Medicine Interventional Cardiology
DX: I42.8 Other cardiomyopathies (principal); I10 Essential (primary) hypertension; E11.9 Type 2 diabetes mellitus without complications; Z87.891 Personal history of nicotine dependence; Z79.899 Other long term (current) drug therapy
CPT/HCPCS: 99152; 93458; C1894; C1769; J1644 ×2; J2003; J3010; Q9967